=== PATIENT | female | born 1955 | race Caucasian/White ===

== ENCOUNTER 2020-09-16 09:20 | Day surgery (SDC) | payer OTHER ==
[~2020-09-16] VITALS: Ht 160 cm; Wt 49.9 kg
--- NOTE | ~2020-09-16 | OP ---
PATIENT NAME: JACOB IYER MEDICAL RECORD: [id number] :53 LOCATION:[facility] ADMISSION DATE: SURGEON: NAVEEN FREED DATE OF OPERATION: 09/16/2020 SURGEON: Naveen Freed DPM PREOPERATIVE DIAGNOSIS: Hallux rigidus, left foot. POSTOPERATIVE DIAGNOSIS: Hallux rigidus, left foot. PROCEDURE: Cheilectomy, left foot. ANESTHESIA: Local with monitored anesthesia care. HEMOSTASIS: Pneumatic ankle tourniquet inflated to 250 mmHg. ESTIMATED BLOOD LOSS: Minimal. MATERIALS: 3-0 Vicryl, 4-0 nylon. INJECTABLES: 20 mL of 0.5% bupivacaine plain. The patient has a longstanding history of pain associated with the left first MPJ. She is here today for surgical correction. We again reviewed the procedure, risks and benefits were discussed. Complications were reviewed. All questions were answered. She was appropriately consented for the above-mentioned procedure. DESCRIPTION OF PROCEDURE: The patient was brought to the operating room and placed on the operating table in the supine position. A timeout was called with Dr. Freed who identified the patient, the surgical site, and the surgery to be performed. Once appropriate anesthesia was obtained, the foot was prepped and draped in the usual aseptic manner. The pneumatic ankle tourniquet was inflated to 250 mmHg around the well-padded left ankle. Attention was directed to the dorsal aspect of the first metatarsophalangeal joint where a 6 cm curvilinear incision was made just medial to the extensor hallucis longus tendon. This incision was carried deep through soft tissue with care being taken to retract all vital neurovascular structures. All bleeders were cauterized along the way. The periosteum was then reflected from the head of the first metatarsal and the base of the proximal phalanx, thus exposing the first metatarsophalangeal joint. Next, utilizing a sagittal saw, the hypertrophied medial eminence and all dorsal osteophytes were resected. Utilizing a rongeur and rasp, all other osteophytes were removed and smoothed down. The surgical site was then investigated for any remaining bony prominences or joint mice and none were noted. The head of the first metatarsal was noted to be partially eroded consistent with degenerative joint changes. The base of the proximal phalanx was intact. The surgical site was irrigated with copious amounts of normal sterile saline via bulb syringe. OPERATIVE REPORT [id number] JACOB IYER The periosteum was reapproximated and coapted using 3-0 Vicryl. The subQ was reapproximated and coapted using 3-0 Vicryl and the skin was reapproximated and coapted using 4-0 nylon. A dressing consisting of Adaptic, 4 x 4's, Kerlix, and Andrez bandage was applied to the left foot. The pneumatic ankle tourniquet was deflated and capillary fill time was immediate to all digits of the left foot. The patient tolerated the procedure and anesthesia well. She left the operating room with vital signs stable and capillary fill time intact. The patient was discharged home with instructions to ice and elevate the left foot. She has a postop shoe to help further offload the area. She has Dr. Freed's cell phone number for any after hour difficulties and there were no complications with this procedure. We will follow up with her next week. TRANSINT:[id number] Voice Confirmation ID: [id number] DOCUMENT ID: [id number] NAVEEN FREED CC: [id number] DICTATION DATE: 09/16/20 1304 JACQUARD LOOM WEAVER: 09/16/20 1443 [facility] [address] [place] [address]
[~2020-09-16 09:20] MED LIST: BAYER CHEWABLE81 MG PO; HYDROCHLOROTH12.5 M1 PO; LIPITOR20 MG PO; OMEPRAZOLE40 MG PO; TRICOR145 MG PO
[2020-09-16 09:40] LABS: BASOPHILS 0.3 % (0-2); EOSINOPHILS 2.7 % (0-7); HEMATOCRIT 41.1 % (36.0-48.0); HEMOGLOBIN 13.7 g/dL (12-16); IMMATURE GRANULOCYTES 0.5 % (0-5); LYMPHOCYTE ABS# 2.17 10x3/uL (1.18-3.74); LYMPHOCYTES 36.7 % (15-50); MCH 31.7 pg (26.0-34.0); MCHC 33.3 g/dL (31.0-37.0); MCV 95.1 fL (80.0-100.0); MEAN PLATELET VOLUME 9.7 fL (7.4-10.4); MONOCYTES 7.4 % (2-11); NEUTROPHIL ABS# 3.09 10x3/uL (1.56-6.13); NEUTROPHILS 52.4 % (40-80); PLATELET COUNT 240 10x3/uL (130-400); RBC 4.32 10x6/uL (4.00-5.40); WBC 5.9 10x3/uL (4.8-10.8)
[2020-09-16 09:50] LABS: CALC OSMOLALITY 290 mosm/kg (275-300); CALCIUM 9.1 mg/dL (8.5-10.1); CARBON DIOXIDE 28.1 mmol/L (21.0-32.0); CHLORIDE - SERUM 107 mmol/L (98-107); CREATININE - SERUM 0.8 mg/dL (0.6-1.3); GLUCOSE 97 mg/dL (74-106); POTASSIUM - SERUM 3.8 mmol/L (3.5-5.1); SODIUM 145 mmol/L (136-145); UREA NITROGEN 19 mg/dL (7-18); eGFR NON AFRICAN AMERICAN 76 mL/min (90-120)
[2020-09-16 11:09] VITALS: BP 154/85; Ht 160 cm; Wt 49.9 kg
--- NOTE | 2020-09-16 12:43 | NUR ---
PT RATED PAIN 1.10 STATED IT JUST FELT UNCOMFROTABLE BUT WAS NOT BAD AT ALL.
--- NOTE | 2020-09-16 13:25 | NUR ---
DC TEACHING COMPLETE; VERBALIZES UNDERSTANDING. 1405 PIV DC'D WITH CATHETER INTACT, HELPING PT TO GET DRESSED 1435 PT DC'D VIA WC BY THIS NURSE TO POV WITH SPOUSE DRIVING. ALL BELONGINGS AND DC PACKET WITH PT/SPOUSE. "BRACE/SHOE" ON LLE
== END 2020-09-16 14:35 | disposition home or self-care (01) ==
LOC: D.OPS 09:20
PROVIDERS: Anesthesiology; ATTEND Podiatrist
DX: M20.22 Hallux rigidus, left foot (principal); G57.51 Tarsal tunnel syndrome, right lower limb